=== PATIENT | male | born 1940 | race Caucasian/White ===

== ENCOUNTER 2020-07-10 05:27 | Inpatient (IN) ==
[2020-07-04 11:14] LABS: Basophils % 0.4 % (0.0-0.8); Eosinophils # 0.1 10*3/uL (0.0-0.87); Hematocrit 42.4 VOL% (42.0-52.0); Hemoglobin 14.6 GM/DL (14.0-18.0); Immature Granulocytes % 0.8 %; Immature Granulocytes Absolute 0.04 #; Lymphocytes # 1.3 10*3/uL (1.4-4.0); Mean Corpuscular HGB Conc 34.4 GM/DL (32-36); Mean Corpuscular Volume 90.6 FL (87-102); Mean Platelet Volume 10.2 FL (9.6-12.0); Neutrophils % 60.8 % (38.7-73.9); Platelet Count 231 T/CUMM (130-400); Red Blood Count 4.68 MC/CUMM (3.8-5.5); Red Cell Distribution Width 12.7 % (9.3-17.3); White Blood Count 5.1 T/CUMM (4-12)
[2020-07-04 12:02] LABS: Albumin 4.1 G/DL (3.4-5.0); Bilirubin,Total 1.2 MG/DL (0.2-1.0); Calcium 9.3 MG/DL (8.5-10.1); Osmolality,Calculated 281.7 MOS/KG (273-304); Potassium 4.1 MMOL/L (3.5-5.1); Total Protein 7.4 G/DL (6.4-8.2)
[2020-07-04 12:06] LABS: PT Patient Result 10.9 SECS (10.5-12.0); Partial Thromboplastin Time 23.4 SECS (23.9-33.8)
[2020-07-10] MEDS ORDERED: cefTRIAXone 1,000 MG VIAL ONE (05:56)
[2020-07-10] MEDS ORDERED: LACTATED RINGERS 1,000 ML IV SCH (06:00)
[2020-07-10] MEDS ORDERED: GABAPENTIN 400 MG CAPSULE PO ONE (06:29)
[2020-07-10] MEDS ORDERED: DIAZEPAM 5 MG TABLET PO ONE (06:29)
[2020-07-10] MEDS ORDERED: ACETAMINOPHEN 500 MG TABLET PO ONE (06:29)
[2020-07-10] MEDS ORDERED: cefTRIAXone 1,000 MG in SODIUM CHLORIDE 0.9% 100 ML IV ONE (06:30)
[2020-07-10] MEDS ORDERED: SUFentanil 50 MCG/ML AMP ONE (06:37)
[2020-07-10] MEDS ORDERED: SEVOFLURANE 1 UNIT/15 MINUTE INH ONE ×12 (06:38→10:25)
[2020-07-10] MEDS ORDERED: DEXAMETHASONE 4 MG/1 ML VIAL ONE ×3 (06:38→09:15)
[2020-07-10] MEDS ORDERED: ONDANSETRON 4 MG/2 ML VIAL ONE (06:38)
[2020-07-10] MEDS ORDERED: LIDOCAINE 2% 5 ML VIAL ONE (06:38)
[2020-07-10] MEDS ORDERED: propofoL 200 MG/20 ML VIAL IV ONE (06:38)
[2020-07-10] MEDS ORDERED: ROCURONIUM 50 MG/5 ML VIAL IV ONE ×2 (06:38→09:15)
[2020-07-10] MEDS ORDERED: ACETAMINOPHEN INJ 1,000 MG/100 ML VIAL IV ONE (06:41)
[2020-07-10] MEDS ORDERED: ALVIMOPAN 12 MG CAPSULE PO STA (06:48)
[2020-07-10] MEDS ORDERED: ROPIVACAINE 0.5% 30 ML VIAL ONE (06:57)
[2020-07-10] MEDS ORDERED: DEXMEDETOMIDINE 200 MCG/2 ML VIAL ONE (06:57)
[2020-07-10] MEDS ORDERED: LIDOCAINE 1% 5 ML VIAL ONE (06:57)
[2020-07-10] MEDS ORDERED: PHENYLEPHRINE 10 MG/1 ML VIAL IV ONE (07:31)
[2020-07-10] MEDS ORDERED: ePHEDrine 50 MG/ML VIAL ONE (07:32)
[2020-07-10] MEDS ORDERED: ETOMIDATE 40 MG/20 ML VIAL IV ONE (07:33)
[2020-07-10] MEDS ORDERED: LACTATED RINGERS 1,000 ML IV ONE ×2 (08:28→10:31)
[2020-07-10] MEDS ORDERED: GLYCOPYRROLATE 0.4 MG/2 ML VIAL ONE (10:06)
[2020-07-10] MEDS ORDERED: NEOSTIGMINE 10 MG/10 ML VIAL ONE ×3 (10:07→10:08)
[2020-07-10] MEDS ORDERED: PHENYLEPHRINE 1 MG/10 ML SYRINGE IV ONE (10:14)
[2020-07-10 10:21] LABS: Bilirubin,Urine Negative (Negative); Blood, Urine Moderate mg/dL (Negative); Glucose,Urine (UA) Negative (Negative); Ketones,Urine Negative (Negative); Mucus,Urine Occasional /LPF (Occasional); Nitrite,Urine Negative (Negative); Protein,Urine Negative; RBC,Urine 17 /HPF (0-4); Squamous Epithelial Cell,Urine Occasional /HPF (0-10); Urine Appearance CLEAR (Clear); Urine Color Yellow (Yellow); Urine Specific Gravity 1.016 (1.001-1.035); Urine Urobilinogen < 2.0 EU/DL (0.2-1.0)
[2020-07-10] MEDS ORDERED: SODIUM CHLORIDE 0.9% 100 ML IV ONE (10:31)
[2020-07-10] MEDS ORDERED: PROMETHAZINE 25 MG/1 ML VIAL IM PRN (10:33)
[2020-07-10] MEDS ORDERED: ONDANSETRON 4 MG/2 ML VIAL IV PRN (10:33)
[2020-07-10] MEDS ORDERED: oxyCODONE/ACETAMINOPHEN 5-325 MG TABLET PO PRN (10:37)
[2020-07-10] MEDS ORDERED: HYDROmorphone 2 MG/1 ML VIAL IV PRN (10:37)
[2020-07-10] MEDS ORDERED: diphenhydrAMINE 50 MG/1 ML VIAL IV PRN (10:38)
[2020-07-10] MEDS ORDERED: hydrALAZINE 10 MG TABLET PO PRN (10:41)
[2020-07-10 11:10] LABS: Basophils % 0.2 % (0.0-0.8); Eosinophils % 0.3 % (0.00-10.9); Hematocrit 42.7 VOL% (42.0-52.0); Hemoglobin 14.4 GM/DL (14.0-18.0); Immature Granulocytes % 0.4 %; Immature Granulocytes Absolute 0.04 #; Lymphocytes # 0.7 10*3/uL (1.4-4.0); Lymphocytes % 7.4 % (21.2-54.2); Mean Corpuscular HGB Conc 33.7 GM/DL (32-36); Mean Corpuscular Volume 92.6 FL (87-102); Mean Platelet Volume 9.6 FL (9.6-12.0); Monocytes % 1.2 % (1.7-12.7); Neutrophils % 90.5 % (38.7-73.9); Platelet Count 227 T/CUMM (130-400); Red Blood Count 4.61 MC/CUMM (3.8-5.5); Red Cell Distribution Width 12.4 % (9.3-17.3); White Blood Count 10.1 T/CUMM (4-12)
[2020-07-10 11:25] LABS: Calcium 8.4 MG/DL (8.5-10.1); Osmolality,Calculated 277.1 MOS/KG (273-304); Potassium 4.1 MMOL/L (3.5-5.1)
[2020-07-10] MEDS: SODIUM CHLORIDE 0.9% 1,000 ML IV SCH (11:51)
[2020-07-10] MEDS ORDERED: DOCUSATE SODIUM 100 MG CAPSULE PO PRN (14:36)
[2020-07-10] MEDS: ACETAMINOPHEN 325 MG TABLET PO SCH ×2 (18:33→18:44)
[2020-07-10] MEDS: SIMVASTATIN 20 MG TABLET PO SCH (20:54)
[2020-07-10] MEDS: ALVIMOPAN 12 MG CAPSULE PO SCH (20:55)
[2020-07-11] MEDS: ACETAMINOPHEN 325 MG TABLET PO SCH ×5 (02:43→22:12)
[2020-07-11 05:17] LABS: Basophils % 0.1 % (0.0-0.8); Hematocrit 36.3 VOL% (42.0-52.0); Hemoglobin 12.4 GM/DL (14.0-18.0); Immature Granulocytes % 0.4 %; Immature Granulocytes Absolute 0.04 #; Lymphocytes % 10.5 % (21.2-54.2); Mean Corpuscular HGB Conc 34.2 GM/DL (32-36); Mean Corpuscular Volume 91.9 FL (87-102); Mean Platelet Volume 10.3 FL (9.6-12.0); Monocytes % 8.4 % (1.7-12.7); Neutrophils % 80.6 % (38.7-73.9); Platelet Count 203 T/CUMM (130-400); Red Blood Count 3.95 MC/CUMM (3.8-5.5); Red Cell Distribution Width 12.4 % (9.3-17.3); White Blood Count 9.4 T/CUMM (4-12)
[2020-07-11 05:55] LABS: Calcium 8.1 MG/DL (8.5-10.1); Osmolality,Calculated 283.5 MOS/KG (273-304); Potassium 3.8 MMOL/L (3.5-5.1)
[2020-07-11] MEDS: PANTOPRAZOLE 40 MG TABLET PO SCH (06:49)
[2020-07-11] MEDS ORDERED: MAGNESIUM SULF RIDER 4 GM/100 ML PREMIX IV PRN (06:56)
[2020-07-11] MEDS ORDERED: POTASSIUM CHLORIDE 20 MEQ TABLET PO ONE (06:56)
[2020-07-11] MEDS ORDERED: MAGNESIUM SULF RIDER 2 GM/50 ML PREMIX IV PRN (06:56)
[2020-07-11] MEDS ORDERED: amLODIPine 2.5 MG TABLET PO SCH (09:00)
[2020-07-11] MEDS ORDERED: DULoxetine 30 MG CAPSULE PO SCH (09:00)
[2020-07-11] MEDS ORDERED: FENOFIBRATE 160 MG TABLET PO SCH (09:00)
[2020-07-11] MEDS: ALVIMOPAN 12 MG CAPSULE PO SCH ×2 (09:47→20:41)
[2020-07-11 12:21] LABS: Risk Ratio 4.45; VLDL CHOLESTEROL 37.8 MG/DL
[2020-07-11] MEDS: SIMVASTATIN 20 MG TABLET PO SCH (20:41)
[2020-07-11] MEDS: SODIUM CHLORIDE 0.9% 1,000 ML IV SCH ×2 (20:43→20:44)
[2020-07-12 06:13] LABS: Basophils % 0.1 % (0.0-0.8); Eosinophils # 0.2 10*3/uL (0.0-0.87); Eosinophils % 1.8 % (0.00-10.9); Hematocrit 37.6 VOL% (42.0-52.0); Hemoglobin 12.9 GM/DL (14.0-18.0); Immature Granulocytes % 0.6 %; Immature Granulocytes Absolute 0.05 #; Lymphocytes # 1.5 10*3/uL (1.4-4.0); Lymphocytes % 18.2 % (21.2-54.2); Mean Corpuscular HGB Conc 34.3 GM/DL (32-36); Mean Corpuscular Volume 92.2 FL (87-102); Mean Platelet Volume 10.1 FL (9.6-12.0); Monocytes % 9.2 % (1.7-12.7); Neutrophils % 70.1 % (38.7-73.9); Platelet Count 184 T/CUMM (130-400); Red Blood Count 4.08 MC/CUMM (3.8-5.5); Red Cell Distribution Width 12.9 % (9.3-17.3); White Blood Count 8.3 T/CUMM (4-12)
[2020-07-12] MEDS: PANTOPRAZOLE 40 MG TABLET PO SCH (06:19)
[2020-07-12] MEDS: ACETAMINOPHEN 325 MG TABLET PO SCH (06:19)
[2020-07-12 06:24] LABS: Calcium 8.7 MG/DL (8.5-10.1); Osmolality,Calculated 280.5 MOS/KG (273-304); Potassium 4.2 MMOL/L (3.5-5.1)
[2020-07-12 07:14] VITALS: BP 141/74
== END 2020-07-12 08:50 | disposition home or self-care (01) | DRG 657 ==
LOC: N.OR 05:27 → N.SDSINP 05:34 → N.5E 12:26
PROVIDERS: ADMIT Surgery; ATTEND Surgery